=== PATIENT | female | born 1985 | race Caucasian/White ===

== ENCOUNTER 2022-05-09 13:34 | Emergency (ER) | payer OTHER ==
[~2022-05-09 13:34] MED LIST: IBUPROFEN600 MG PO
[2022-05-09 14:41] LABS: HEMOGLOBIN 14.3 gm/dl (12.3-15.3); RED BLOOD COUNT 4.69 M/UL (4.00-5.10); WHITE BLOOD COUNT 15.1 K/UL (4.5-11.0)
[2022-05-09 15:06] LABS: BUN/CREATININE RATIO 10 (0-10)
[2022-05-09] MEDS ORDERED: TORADOL 10 MG T10 MG PO (16:24)
== END 2022-05-09 16:34 | disposition home or self-care (01) ==
LOC: ER1 13:34
PROVIDERS: Physician Assistant Medical
DX: N13.2 Hydronephrosis with renal and ureteral calculous obstruction (principal); F17.200 Nicotine dependence, unspecified, uncomplicated; Z87.442 Personal history of urinary calculi; Z90.49 Acquired absence of other specified parts of digestive tract
CPT/HCPCS: 80053; 81001; 84703; 85025; 96372; 99284; J1885